=== PATIENT | female | born 1975 | race Caucasian/White ===

== ENCOUNTER 2023-03-04 18:11 | Inpatient (IN) | payer BC, SELFPAY ==
[2023-03-04 18:45] VITALS: BP 146/68; PULSE 90; RESP 18; TEMP 36.3; O2SAT 98
[2023-03-04] MEDS: HaloperidoL 5 MG TABLET PO (21:00)
[2023-03-04] MEDS: traZODone HCL 50 MG TABLET 150 MG PO (21:01)
[2023-03-04] MEDS: lamoTRIgine 100 MG TABLET PO (21:01)
[2023-03-04 21:43] VITALS: BMI 31.5
--- NOTE | 2023-03-04 22:40 | PC.ADMIT ---
PT admitted to unit from [facility] on CV at 1828. PT is a 47 year old, white, , female brought to ED by her who said PT has been on/off her medications for a few weeks. A+O x3, confused. PT has hx of PTSD, SI, anxiety, depression, Bipolar D/O,asthma, HTN, non insulin dependent diabetic. PT refused to sign legals for providers, denies nicotene replacement, COVID negative, tox screen negative, denies SI/HI, and feels safe on unit. PT is current smoker denies nicotine replacement. Skin check completed, no issues noted or reported. PT unable to answer some admission questions, PT medication compliant and currently sleeping.
[2023-03-05 09:00] VITALS: BP 125/72; PULSE 90; RESP 18; TEMP 36.4; O2SAT 96
[2023-03-05 09:01] LABS: Estimated Average Glucose 100 mg/dL; Hemoglobin A1c % 5.1 % (<6.0)
[2023-03-05] MEDS: lisinopriL 40 MG TABLET PO (09:03)
[2023-03-05] MEDS: lamoTRIgine 100 MG TABLET PO ×2 (09:03→20:18)
[2023-03-05] MEDS: amLODIPine Besylate 10 MG TABLET PO (09:03)
[2023-03-05] MEDS: metFORMIN HCl 500 MG TABLET PO (09:03)
[2023-03-05 09:19] LABS: Creatinine Clr Calc Pharmacy 102.3; Estimated Glomerular Filt Rate > 60
[2023-03-05 09:31] LABS: Cholesterol 161 mg/dL (<200); HDL Cholesterol 39 mg/dL (>40); LDL Cholesterol Calculated 110 mg/dL (<100); Magnesium 2.2 mg/dL (1.6-2.6); Triglycerides 63 mg/dL (<150)
--- NOTE | 2023-03-05 09:45 | PC.NURSE ---
Upon approach patient is calm and pleasant, when asked if she smoked cigarettes stated Yes, when asked how many stated I don't know, some when asked if she wanted a patch or nicotine gum while being here in the hospital to help with nicotine cravings stated No. Education given on possible nicotine withdrawal symptoms, question was asked again patient stated No.
[2023-03-05 09:52] LABS: Free T4 (Free Thyroxine) 1.01 ng/dL (0.71-1.85)
[2023-03-05 10:00] LABS: Folate 9.3 ng/mL (> or = 4.0); Vitamin B12 423 pg/mL (200-900)
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
[2023-03-05 16:00] VITALS: BP 119/73; PULSE 92; TEMP 37; O2SAT 98
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
[2023-03-05] MEDS: traZODone HCL 50 MG TABLET 150 MG PO (20:18)
[2023-03-05] MEDS: HaloperidoL 5 MG TABLET PO (20:18)
[2023-03-06] MEDS: ARIPiprazole 10 MG TABLET PO (09:09)
[2023-03-06] MEDS: lamoTRIgine 100 MG TABLET PO ×2 (09:09→20:05)
[2023-03-06] MEDS: metFORMIN HCl 500 MG TABLET PO (09:09)
[2023-03-06] MEDS: lisinopriL 40 MG TABLET PO (09:09)
[2023-03-06] MEDS: amLODIPine Besylate 10 MG TABLET PO (09:09)
[2023-03-06 09:15] VITALS: BP 107/61; PULSE 90; RESP 18; TEMP 36.6; O2SAT 98
[2023-03-06 18:00] VITALS: BP 118/69; PULSE 90; TEMP 36.6; O2SAT 97
[2023-03-06] MEDS: traZODone HCL 50 MG TABLET 150 MG PO (20:05)
[2023-03-06] MEDS: HaloperidoL 5 MG TABLET PO (20:05)
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
[2023-03-07] MEDS: lisinopriL 40 MG TABLET PO (07:55)
[2023-03-07] MEDS: lamoTRIgine 100 MG TABLET PO ×2 (07:56→20:20)
[2023-03-07] MEDS: metFORMIN HCl 500 MG TABLET PO (07:56)
[2023-03-07] MEDS: amLODIPine Besylate 10 MG TABLET PO (07:56)
[2023-03-07] MEDS: ARIPiprazole 10 MG TABLET PO (07:56)
[2023-03-07 07:59] VITALS: BP 123/60; PULSE 80; RESP 16; TEMP 36.1; O2SAT 98
[2023-03-07] MEDS: Acetaminophen 325 MG TABLET 650 MG PO (12:54)
[2023-03-07 18:00] VITALS: BP 125/81; PULSE 89; TEMP 36.5; O2SAT 98
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
[2023-03-07] MEDS: traZODone HCL 50 MG TABLET 150 MG PO (20:20)
[2023-03-07] MEDS: HaloperidoL 5 MG TABLET PO (20:20)
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
[2023-03-08 09:30] VITALS: BP 115/66; PULSE 88; RESP 18; TEMP 36.8; O2SAT 97
[2023-03-08] MEDS: lamoTRIgine 100 MG TABLET PO ×2 (09:33→20:13)
[2023-03-08] MEDS: amLODIPine Besylate 10 MG TABLET PO (09:33)
[2023-03-08] MEDS: ARIPiprazole 10 MG TABLET PO (09:33)
[2023-03-08] MEDS: metFORMIN HCl 500 MG TABLET PO (09:33)
[2023-03-08] MEDS: lisinopriL 40 MG TABLET PO (09:33)
[2023-03-08 18:00] VITALS: BP 118/72; PULSE 84; RESP 18; TEMP 36.6; O2SAT 97
[2023-03-08] MEDS: HaloperidoL 5 MG TABLET PO (20:13)
[2023-03-08] MEDS: traZODone HCL 50 MG TABLET 150 MG PO (20:13)
[2023-03-09 07:59] LABS: Glucose, Whole Blood 94 mg/dL (60-115)
[2023-03-09 08:25] VITALS: BP 117/68; PULSE 88; RESP 18; TEMP 36.5; O2SAT 97
[2023-03-09] MEDS: amLODIPine Besylate 10 MG TABLET PO (09:24)
[2023-03-09] MEDS: lamoTRIgine 100 MG TABLET PO ×2 (09:24→20:26)
[2023-03-09] MEDS: metFORMIN HCl 500 MG TABLET PO (09:24)
[2023-03-09] MEDS: lisinopriL 40 MG TABLET PO (09:25)
[2023-03-09] MEDS: ARIPiprazole 10 MG TABLET PO (09:25)
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
[2023-03-09 20:00] VITALS: BP 120/77; PULSE 78; RESP 18; TEMP 36.1; O2SAT 98
[2023-03-09] MEDS: traZODone HCL 50 MG TABLET 150 MG PO (20:26)
[2023-03-09] MEDS: HaloperidoL 5 MG TABLET PO (20:26)
[2023-03-10 08:00] VITALS: BP 111/69; PULSE 81; RESP 18; TEMP 36.6; O2SAT 98
[2023-03-10 08:09] LABS: Glucose, Whole Blood 87 mg/dL (60-115)
[2023-03-10] MEDS: amLODIPine Besylate 10 MG TABLET PO (08:57)
[2023-03-10] MEDS: ARIPiprazole 10 MG TABLET PO (08:57)
[2023-03-10] MEDS: lisinopriL 40 MG TABLET PO (08:57)
[2023-03-10] MEDS: metFORMIN HCl 500 MG TABLET PO (08:57)
[2023-03-10] MEDS: lamoTRIgine 100 MG TABLET PO ×2 (08:57→19:16)
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
[2023-03-10 18:00] VITALS: BP 117/80; PULSE 79; RESP 18; TEMP 36.7; O2SAT 97
[2023-03-10] MEDS: HaloperidoL 5 MG TABLET PO (19:16)
[2023-03-10] MEDS: traZODone HCL 50 MG TABLET 150 MG PO (19:16)
[2023-03-11 08:10] LABS: Glucose, Whole Blood 98 mg/dL (60-115)
[2023-03-11 08:53] VITALS: BP 103/69; PULSE 93; RESP 18; TEMP 36.1; O2SAT 95
[2023-03-11] MEDS: lisinopriL 40 MG TABLET PO (08:55)
[2023-03-11] MEDS: metFORMIN HCl 500 MG TABLET PO (08:55)
[2023-03-11] MEDS: lamoTRIgine 100 MG TABLET PO ×2 (08:55→20:10)
[2023-03-11] MEDS: ARIPiprazole 10 MG TABLET PO (08:55)
[2023-03-11] MEDS: amLODIPine Besylate 10 MG TABLET PO (08:55)
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
[2023-03-11 19:24] VITALS: BP 115/68; PULSE 80; TEMP 36.1
[2023-03-11] MEDS: traZODone HCL 50 MG TABLET 150 MG PO (20:10)
[2023-03-11] MEDS: HaloperidoL 5 MG TABLET PO (20:10)
[2023-03-12 08:33] LABS: Glucose, Whole Blood 94 mg/dL (60-115)
[2023-03-12 09:00] VITALS: BP 115/71; PULSE 100; RESP 18; TEMP 36.2; O2SAT 97
[2023-03-12] MEDS: ARIPiprazole 10 MG TABLET PO (09:19)
[2023-03-12] MEDS: metFORMIN HCl 500 MG TABLET PO (09:19)
[2023-03-12] MEDS: lamoTRIgine 100 MG TABLET PO ×2 (09:19→20:00)
[2023-03-12] MEDS: amLODIPine Besylate 10 MG TABLET PO (09:19)
[2023-03-12] MEDS: lisinopriL 40 MG TABLET PO (09:19)
[2023-03-12 10:27] LABS: Creatinine Clr Calc Pharmacy 90.6; Estimated Glomerular Filt Rate > 60
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
[2023-03-12 19:59] VITALS: BP 102/62; PULSE 97; RESP 18; TEMP 36.9
[2023-03-12] MEDS: HaloperidoL 5 MG TABLET PO (20:00)
[2023-03-12] MEDS: traZODone HCL 50 MG TABLET 150 MG PO (20:00)
[2023-03-13] MEDS: amLODIPine Besylate 10 MG TABLET PO (08:17)
[2023-03-13] MEDS: metFORMIN HCl 500 MG TABLET PO (08:18)
[2023-03-13] MEDS: ARIPiprazole 10 MG TABLET PO (08:18)
[2023-03-13] MEDS: lamoTRIgine 100 MG TABLET PO ×2 (08:18→20:24)
[2023-03-13] MEDS: lisinopriL 40 MG TABLET PO (08:18)
[2023-03-13 08:45] LABS: Glucose, Whole Blood 87 mg/dL (60-115)
[2023-03-13 09:06] VITALS: BP 104/61; PULSE 91; RESP 18; TEMP 36.9; O2SAT 96
[2023-03-13 12:41] VITALS: BMI 32.4
[2023-03-13 16:22] VITALS: BP 109/67; PULSE 88; TEMP 36.8
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
[2023-03-13] MEDS: HaloperidoL 5 MG TABLET PO (20:24)
[2023-03-13] MEDS: traZODone HCL 50 MG TABLET 150 MG PO (20:24)
[2023-03-14 08:37] LABS: Glucose, Whole Blood 86 mg/dL (60-115)
[2023-03-14] MEDS: ARIPiprazole 10 MG TABLET PO (08:50)
[2023-03-14] MEDS: metFORMIN HCl 500 MG TABLET PO (08:50)
[2023-03-14] MEDS: amLODIPine Besylate 10 MG TABLET PO (08:50)
[2023-03-14] MEDS: lisinopriL 40 MG TABLET PO (08:50)
[2023-03-14] MEDS: lamoTRIgine 100 MG TABLET PO ×2 (08:50→19:40)
[2023-03-14 09:46] VITALS: BP 107/65; PULSE 86; RESP 16; TEMP 36.7; O2SAT 95
[2023-03-14] MEDS: Acetaminophen 325 MG TABLET 650 MG PO (13:32)
[2023-03-14 18:00] VITALS: BP 104/70; PULSE 103; RESP 18; TEMP 36.1
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
[2023-03-14] MEDS: traZODone HCL 50 MG TABLET 150 MG PO (19:40)
[2023-03-14] MEDS: HaloperidoL 5 MG TABLET PO (19:40)
[2023-03-15 08:23] VITALS: BP 121/74; PULSE 89; RESP 16; TEMP 36.4; O2SAT 96
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
[2023-03-15] MEDS: lisinopriL 40 MG TABLET PO (08:50)
[2023-03-15] MEDS: lamoTRIgine 100 MG TABLET PO ×2 (08:50→19:12)
[2023-03-15] MEDS: metFORMIN HCl 500 MG TABLET PO (08:50)
[2023-03-15] MEDS: amLODIPine Besylate 10 MG TABLET PO (08:51)
[2023-03-15] MEDS: ARIPiprazole 10 MG TABLET PO (08:51)
[2023-03-15 16:37] VITALS: BP 106/70; PULSE 88; TEMP 36.4; O2SAT 96
[2023-03-15] MEDS: traZODone HCL 50 MG TABLET 150 MG PO (19:12)
[2023-03-15] MEDS: HaloperidoL 5 MG TABLET PO (19:12)
[2023-03-16 00:39] LABS: Glucose, Whole Blood 88 mg/dL (60-115)
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
[2023-03-16] MEDS: lamoTRIgine 100 MG TABLET PO ×2 (08:20→21:00)
[2023-03-16] MEDS: metFORMIN HCl 500 MG TABLET PO (08:20)
[2023-03-16] MEDS: lisinopriL 40 MG TABLET PO (08:20)
[2023-03-16] MEDS: amLODIPine Besylate 10 MG TABLET PO (08:20)
[2023-03-16] MEDS: ARIPiprazole 10 MG TABLET PO (08:20)
[2023-03-16 08:48] VITALS: BP 102/58; PULSE 80; RESP 16; TEMP 36.9; O2SAT 96
[2023-03-16 16:48] VITALS: BP 141/84; PULSE 99; TEMP 36.8; O2SAT 97
[2023-03-16] MEDS: HaloperidoL 5 MG TABLET PO (21:00)
[2023-03-16] MEDS: traZODone HCL 50 MG TABLET 150 MG PO (21:00)
--- NOTE | 2023-03-16 21:45 | PC.NURSE ---
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 Patient noted to be tearful and sad. Patient said she and her had a disagreement on the telephone and she wanted to know if she should call him back and apologize. Patient talked about her frustration with her not understanding her mental illness issues; she also mentioned that her was not interested in couple's therapy. Patient said she decided she would Let sleeping dogs lie and not call him; she said I would probably just get him more upset .
[2023-03-17 08:21] LABS: Glucose, Whole Blood 89 mg/dL (60-115)
[2023-03-17 09:14] VITALS: BP 141/84; PULSE 89; RESP 16; TEMP 36.8; O2SAT 97
[2023-03-17] MEDS: metFORMIN HCl 500 MG TABLET PO (09:23)
[2023-03-17] MEDS: lamoTRIgine 100 MG TABLET PO (09:23)
[2023-03-17] MEDS: ARIPiprazole 10 MG TABLET PO (09:23)
[2023-03-17] MEDS: lisinopriL 40 MG TABLET PO (09:23)
[2023-03-17] MEDS: amLODIPine Besylate 10 MG TABLET PO (09:23)
--- NOTE | 2023-03-25 16:17 | P.DS_ITS ---
DS: Providers Provider Date of Service: 03/17/23 Date of admission: 03/04/23 18:11 Date of discharge: 03/17/23 Primary care physician: Unknown Physician Admitting clinician: Verena Harrell Attending physician on admission: Jonel Barcenas Consults: 03/05/23 14:02 Consult to Hospitalist Routine Comment: Consulting Provider: Hospitalist Reason For Exam: Transfer from another facility Attending physician on discharge: Jonel Barcenas Discharging clinician: Verena Harrell DS: Diagnosis Discharge Diagnosis (1) Bipolar 1 disorder: Status: Acute DS: Medications Discharge Medications Home Medications: Home Medications Medication Instructions Recorded Confirmed amlodipine 10 mg tablet 10 mg PO DAILY 03/04/23 03/04/23 haloperidol 5 mg tablet 5 mg PO BEDTIME 03/04/23 03/04/23 lamotrigine 100 mg tablet 100 mg PO BID 03/04/23 03/04/23 lisinopril 40 mg tablet 40 mg PO DAILY 03/04/23 03/04/23 metformin 500 mg tablet 500 mg PO DAILY 03/04/23 03/04/23 trazodone 150 mg tablet 150 mg PO BEDTIME 03/04/23 03/04/23 Previous Rx's Medication Instructions Recorded aripiprazole 10 mg tablet (Abilify) 10 mg PO DAILY #1 tab 03/17/23 Mental Status Exam Mental Status Exam Patient Appearance: Appropriate Patient Orientation: Person, Place, Time and Situation Level of Consciousness: Alert Patient Behavior: Appropriate, Talkative, Resistive to Care and Good Eye Contact Mood Description: Flat Affect Description: Flat Patient Cognition Impaired: No Ability to Follow Directions: Good Speech Pattern: Spontaneous Speech Memory Description: Intact Delusions: Present Perceptual Disturbances: Depersonalization and Derealization Thought Process: Rumination Thought Content: positive for [place], positive for Circumstantial and positive for Perseveration Depressive Symptoms: Low Self Esteem Judgement: Good DS: Summary Hospital Course Hospital Course: Admission to adult psychiatry for exacerbation of bipolar disorder due to medication noncompliance with resulting SI and psychotic symptoms. Medications were assessed and re-titrated. Pt gradually stabilized and was able to return home to family at the end of their scheduled vacation. She was minimally participatory in the milieu during the admission. Status at Discharge Functional status at discharge: independent ambulation Overall status at discharge: patient is back to baseline Time Spent with Patient Time attestation: Total time managing care of this patient today ____ minutes. Time spent: Greater than 30 minutes Discharge Plan Discharge Anticipated Discharge Date/Time: 03/17/23 12:00 Patient Disposition: Home, Self-Care Discharge Diagnosis: Bipolar Disorder Referrals: Maru Lopez: (Psychiatry):[facility] [Other] - 03/17/23 3:15 pm (Hospital Discharge Appointment with psychiatric medication provider.) [facility] [Other] - 1 Week (PT. STATES WILL MAKE OWN F/U APPOINTMENT. PT ALSO STATES NO NEED TO FAX PCP D/C SUMMARY .) Physician,Rey J [Primary Care Provider] - 1 Week (pt reports she will make her own follow-up appt (no signed release of information) ) Discharge Medications: New aripiprazole [Abilify] 10 mg tablet 10 mg PO DAILY Qty: 1 0RF Rx Instructions: Pt reports she has a supply at home Continued amlodipine 10 mg tablet 10 mg PO DAILY metformin 500 mg tablet 500 mg PO DAILY haloperidol 5 mg tablet 5 mg PO BEDTIME trazodone 150 mg tablet 150 mg PO BEDTIME lisinopril 40 mg tablet 40 mg PO DAILY lamotrigine 100 mg tablet 100 mg PO BID Discharge Orders: Discharge Order (Routine); Ordered 03/17/23 Ordered By: Verena Harrell Diet: Diabetic diet Activity on Discharge: As tolerated Stand Alone Forms: Patient Portal Discharge page, Community Support Care Plan Goals: Mood and Behavioral Stabilization Health Concerns: Mood and Behavioral Stabilization Plan of Treatment: Attend scheduled appointments Take medications as directed Assessment: Pt interviewed prior to discharge and found to be fully oriented and without SI/HI. Pt has insight and demonstrates fair judgment in terms of wanting to pursue treatment. Pt is not in imminent risk of harm to self or others and has a safety plan that includes presenting to the closest ER or calling 911 if feeling unsafe. Pt has been observed closely by nursing and unit staff throughout admission Pt has not engaged in any behaviors that suggest dangerousness to self or others and has demonstrated appropriate behaviors and impulse control. Pt reports she does not need prescriptions as she has a supply at home due to non compliance prior to admission. She has her psychopharmacology appt today with her provider and will discuss if any refills are needed. Discharge Date/Time: 03/17/23 10:45
== END 2023-03-17 10:45 | disposition home or self-care (01) | DRG 753 ==
PROVIDERS: Admitting Provider Psychiatry & Neurology Psychiatry; Visit Provider Clinical Nurse Specialist Psychiatric/Mental Health, Adult
DX: F31.9 Bipolar disorder, unspecified (principal); E11.9 Type 2 diabetes mellitus without complications; I10 Essential (primary) hypertension; J44.9 Chronic obstructive pulmonary disease, unspecified; F17.210 Nicotine dependence, cigarettes, uncomplicated; Z71.6 Tobacco abuse counseling; Z79.84 Long term (current) use of oral hypoglycemic drugs; Z79.899 Other long term (current) drug therapy
CPT/HCPCS: 36415; 80061; 82565; 82607; 82746; 82947; 83036; 83735; 84439; 84443

== ENCOUNTER → 2023-03-04 18:11 | Outpatient (BNV) | payer BC, SELFPAY | PROVIDERS: Admitting Provider Psychiatry & Neurology Psychiatry; Visit Provider Physician Assistant | DX: Z02.2 Encounter for examination for admission to residential institution (principal) | CPT/HCPCS: 99429 ==

== ENCOUNTER → 2023-03-04 18:11 | Outpatient (BNV) | payer BC, SELFPAY | PROVIDERS: Admitting Provider Psychiatry & Neurology Psychiatry; Visit Provider Psychiatry & Neurology Psychiatry | DX: F31.4 Bipolar disorder, current episode depressed, severe, without psychotic features (principal) | CPT/HCPCS: 99239 ==

== ENCOUNTER → 2023-03-04 18:11 | Outpatient (BNV) | payer BC, SELFPAY | PROVIDERS: Admitting Provider Psychiatry & Neurology Psychiatry; Visit Provider Clinical Nurse Specialist Psychiatric/Mental Health, Adult | DX: F31.5 Bipolar disorder, current episode depressed, severe, with psychotic features (principal) | CPT/HCPCS: 90792; 99231 ==